=== PATIENT | male | born 1960 | race Caucasian/White ===

== ENCOUNTER 2022-05-12 08:31 | Outpatient (CLI) | payer OTHER, SELFPAY | END 2022-05-12 08:32 | disposition home or self-care (01) | LOC: NFLDREF 05-14 13:53 | PROVIDERS: PCP Family Medicine; Referring Provider Family Medicine; Visit Provider Family Medicine | DX: Z00.00 Encounter for general adult medical examination without abnormal findings (principal); D64.9 Anemia, unspecified; E78.00 Pure hypercholesterolemia, unspecified; Z12.5 Encounter for screening for malignant neoplasm of prostate | CPT/HCPCS: 80053; 80061; 84153 ==

== ENCOUNTER 2022-08-17 08:00 | Outpatient (CLI) | payer OTHER, SELFPAY | END 2022-08-17 08:01 | disposition home or self-care (01) | LOC: NFLDREF 08-18 07:05 | PROVIDERS: PCP Family Medicine; Referring Provider Family Medicine; Visit Provider Family Medicine | DX: D64.9 Anemia, unspecified (principal) | CPT/HCPCS: 82607; 82728; 83540 ==

== ENCOUNTER 2022-11-04 10:10 | Outpatient (CLI) | payer OTHER, SELFPAY | END 2022-11-04 10:11 | disposition home or self-care (01) | PROVIDERS: PCP Family Medicine; Visit Provider Family Medicine | DX: D64.9 Anemia, unspecified (principal); E78.00 Pure hypercholesterolemia, unspecified; R63.4 Abnormal weight loss; R19.4 Change in bowel habit; K30 Functional dyspepsia | CPT/HCPCS: 80053; 82607; 82728; 83540 ==

== ENCOUNTER 2022-11-11 07:02 | Outpatient (CLI) | payer OTHER, SELFPAY ==
--- NOTE | 2022-11-11 07:15 | CRLHL7_ITS ---
For Patients: As a result of the Century Cures Act, medical imaging exams and procedure reports are released immediately into your electronic medical record. You may view this report before your referring provider. If you have questions, please contact your health care provider. INDICATION: unexplained weight loss COMPARISON: none TECHNIQUE: Real time ayala scale imaging and color Doppler analysis was performed of the right upper quadrant. FINDINGS: The patient`s liver is of normal size and has uniform echogenicity. There is a normal appearance of the hepatic IVC and proximal abdominal aorta. There is no evidence of ascites. The gallbladder is of incompletely distended and there are echogenic foci regarding the nondependent gallbladder wall with associated ring down artifact. The gallbladder wall measures 2.7 mm in thickness. The common bile duct is of normal size and measures 4 mm in diameter at the level of the eduardo hepatis. The pancreas appears normal. There is no evidence of a stone or hydronephrosis within the right kidney. The right kidney measures 10.2 cm in length. IMPRESSION: Adenomyomatosis of the gallbladder. The remainder of the exam is unremarkable. Dictated by Walt Marvin MD @ 11/11/2022 9:03:26 AM (Electronically Signed)
== END 2022-11-11 07:03 | disposition home or self-care (01) ==
LOC: US 07:03
PROVIDERS: PCP Family Medicine; Visit Provider Family Medicine
DX: R63.4 Abnormal weight loss (principal); K30 Functional dyspepsia
CPT/HCPCS: 76705

== ENCOUNTER 2022-11-16 08:47 | Outpatient (CLI) | payer OTHER, SELFPAY ==
--- NOTE | 2022-11-16 07:28 | W.ANESCHARGE ---
Anesthesia Charges Start Date/Time Anesthesia Start Date: 11/16/22 Anesthesia Start Time: 09:54 Stop Date/Time Anesthesia Stop Date: 11/16/22 Anesthesia Stop Time: 10:56
--- NOTE | 2022-11-16 10:58 | W.ANESCHARGE ---
Anesthesia Charges Start Date/Time Anesthesia Start Date: 11/16/22 Anesthesia Start Time: 09:54 Stop Date/Time Anesthesia Stop Date: 11/16/22 Anesthesia Stop Time: 10:56
== END 2022-11-16 08:48 | disposition home or self-care (01) ==
LOC: OP CLINIC 08:48
PROVIDERS: PCP Family Medicine; Visit Provider Surgery
DX: Z12.11 Encounter for screening for malignant neoplasm of colon (principal); K63.5 Polyp of colon; K64.8 Other hemorrhoids; R19.8 Other specified symptoms and signs involving the digestive system and abdomen; R63.4 Abnormal weight loss
CPT/HCPCS: 00813; 43239; 45380; 45385; 88305; J2704; J3490

== ENCOUNTER 2022-11-29 14:02 | Outpatient (CLI) | payer OTHER, SELFPAY | END 2022-11-29 14:03 | disposition home or self-care (01) | LOC: LKVREF 14:05 | PROVIDERS: PCP Family Medicine; Visit Provider Family Medicine | DX: R63.4 Abnormal weight loss (principal); D64.9 Anemia, unspecified; R10.9 Unspecified abdominal pain | CPT/HCPCS: 80053 ==

== ENCOUNTER 2022-12-09 07:41 | Outpatient (RCR) | payer OTHER, SELFPAY | END 2023-04-04 15:54 | disposition home or self-care (01) | PROVIDERS: PCP Family Medicine; Visit Provider Orthopaedic Surgery Sports Medicine | DX: G25.89 Other specified extrapyramidal and movement disorders (principal); M25.511 Pain in right shoulder; R53.1 Weakness; M89.8X1 Other specified disorders of bone, shoulder; Z51.89 Encounter for other specified aftercare | CPT/HCPCS: 97110; 97162 ==

== ENCOUNTER 2023-01-04 08:29 | Outpatient (CLI) | payer OTHER, SELFPAY ==
--- NOTE | 2023-01-04 09:00 | CRLHL7_ITS ---
For Patients: As a result of the Century Cures Act, medical imaging exams and procedure reports are released immediately into your electronic medical record. You may view this report before your referring provider. If you have questions, please contact your health care provider. Indication: ABD PAIN X 6 MONTHS ON AND OFF. WEIGHT LOSS Technique: CT Abdomen/Pelvis [facility] IS[address] 370 AND WATER PREP Please note that all CT scans at this facility use dose modulation, iterative reconstruction, and/or weight-based dosing when appropriate to reduce radiation dose to as low as reasonably achievable. Comparison: 12.27.11 Findings: Stable calcified granuloma within the right lower lobe. There is no pleural effusion. No free intraperitoneal air noted. There is no intrahepatic mass. The spleen is normal. Normal adrenal glands. The kidneys are within normal limits. Normal spleen. The gallbladder is normal. No calcified gallstones. No hernia. The bladder is normal. Prostate is not enlarged. Mild diverticulosis in the sigmoid colon. No diverticulitis. No bowel obstruction. No free fluid or abscess. The appendix is within normal limits. No adenopathy. The small bowel loops are unremarkable. Mild degenerative changes are present. There is no fracture. Impression: Mild sigmoid diverticulosis. No diverticulitis. No evidence of inflammatory bowel disease. The remainder of the examination is unremarkable. Please note that all CT scans at this facility use dose modulation, iterative reconstruction, and/or weight-based dosing when appropriate to reduce radiation dose to as low as reasonably achievable. Dictated by Walt Marvin MD @ 01/04/2023 1:17:32 PM (Electronically Signed)
[2023-01-04 09:16] LABS: Estimated Glomerular Filt Rate 84 ml/min
== END 2023-01-04 08:30 | disposition home or self-care (01) ==
LOC: CT 08:29
PROVIDERS: PCP Family Medicine; Visit Provider Physician Assistant
DX: R10.9 Unspecified abdominal pain (principal); R19.5 Other fecal abnormalities; R63.4 Abnormal weight loss; K57.31 Diverticulosis of large intestine without perforation or abscess with bleeding
CPT/HCPCS: 36415; 74177; 82565; Q9967

== ENCOUNTER 2023-10-05 08:04 | Outpatient (CLI) | payer MEDICARE, SELFPAY | END 2023-10-05 08:05 | disposition home or self-care (01) | LOC: NFLDREF 15:15 | PROVIDERS: PCP Family Medicine; Referring Provider Family Medicine; Visit Provider Family Medicine | DX: E78.00 Pure hypercholesterolemia, unspecified (principal) | CPT/HCPCS: 80061; 80076; G0103 ==

== ENCOUNTER 2023-10-27 08:39 | Outpatient (CLI) | payer MEDICARE, SELFPAY | END 2023-10-27 08:40 | disposition home or self-care (01) | PROVIDERS: PCP Family Medicine; Visit Provider Family Medicine | DX: Z00.00 Encounter for general adult medical examination without abnormal findings (principal); R53.83 Other fatigue; D75.89 Other specified diseases of blood and blood-forming organs; R10.9 Unspecified abdominal pain; R63.4 Abnormal weight loss; D64.9 Anemia, unspecified; E78.00 Pure hypercholesterolemia, unspecified | CPT/HCPCS: 82306; 82607; 82746; 84270; 84402; 84403; 84443; 86140 ==

== ENCOUNTER 2025-01-24 08:03 | Outpatient (CLI) | payer MEDICARE, SELFPAY | END 2025-01-24 08:04 | disposition home or self-care (01) | LOC: NFLDREF 01-27 17:36 | PROVIDERS: PCP Family Medicine; Referring Provider Family Medicine; Visit Provider Family Medicine | DX: E55.9 Vitamin D deficiency, unspecified (principal); E78.00 Pure hypercholesterolemia, unspecified; Z12.5 Encounter for screening for malignant neoplasm of prostate; M81.0 Age-related osteoporosis without current pathological fracture | CPT/HCPCS: 80053; 80061; 82306; 84403; G0103 ==

== ENCOUNTER 2025-03-05 09:38 | Outpatient (CLI) | payer MEDICARE, SELFPAY | END 2025-03-05 09:39 | disposition home or self-care (01) | PROVIDERS: PCP Family Medicine; Visit Provider Family Medicine | DX: D64.9 Anemia, unspecified (principal); E78.00 Pure hypercholesterolemia, unspecified; R63.4 Abnormal weight loss; R53.83 Other fatigue; Z79.899 Other long term (current) drug therapy | CPT/HCPCS: 80061; 80076; 82607; 82728; 83540; 83550; 84270; 84402; 84403 ==